=== PATIENT | male | born 1960 | race Caucasian/White ===

== ENCOUNTER 2019-07-03 08:30 | Emergency (ER) | payer SELFPAY ==
[~2019-07-03] VITALS: Ht 185 cm; Wt 109.0 kg
--- NOTE | 2019-07-03 09:30 | NUR ---
pt refused any testing beyond X-rays. physician states she wanted to order CT scans and blood work but pt refused. pt signed refusal form.
--- NOTE | 2019-07-03 09:36 | ED Fall/Injury ---
General Chief Complaint: Back Problems Stated Complaint: FALL - BACK PAIN Source: patient History of Present Illness Date Seen by Provider: Jul 03, 2019 Time Seen by Provider: 09:25 Initial Comments PT ARRIVES VIA POV STATES HE GOT UP FROM THE COUCH AND TRIPPED ON RUG AND FELL, HITTING HIS LEFT RIB AND FLANK AREA--DOES NOT STATE WHAT HE HIT THE AREA ON. OCCURRED AROUND MIDNIGHT C/O SEVERE PAIN WITH ANY MOVEMENT, COUGHING OR TAKING A DEEP BREATH--PAIN IS IN LEFT ANTERIOR/LATERAL AND POSTERIOR RIB AREA, LEFT FLANK, LEFT MID AND LOWER BACK AND LEFT MID AND UPPER ABDOMEN STATES HE TOOK 4 IBUPROFEN AT MIDNIGHT AND AN HOUR AGO. DOES NOT ACTUALLY FEEL SHORT OF BREATH STATES HE "HAS THE FLU" --STATES HE HAS BEEN SICK FOR A WEEK WITH COUGH AND CONGESTION, HAD FEVER OF 103 FOR THE FIRST FEW DAYS, BUT NOT NOW. HAS NOT SOUGHT CARE FOR THOSE SYMPTOMS. HAS NOT TAKEN ANYTHING FOR THOSE SYMPTOMS COUGH IS NON-PRODUCTIVE TALKS VERY RAPIDLY, RAMBLES ON ABOUT BEING A "FIGHTER", GETTING RAN OVER BY AN AIRPLANE, GETTING HIT BY A TRUCK, AND MULTITUDE OF OTHER "ACCIDENTS" STATES HE "NEEDS SOMETHING REALLY STRONG FOR PAIN" STATES HE "DOESN'T HAVE A DR" --BUT HAS RX FOR AMITRIPTYLINE--STATES HE SEES SOMEONE IN [facility] STATES [place] IN [place] Allergies and Home Medications Allergies Coded Allergies: No Known Drug Allergies (Unverified , 07/03/19) Home Medications Benzonatate 100 Mg Capsule, 1-2 TAB PO TID Prescribed by: CORINNE MEDINA on 07/03/19 1026 Doxycycline Monohydrate 100 Mg Capsule, 100 MG PO BID Prescribed by: CORINNE MEDINA on 07/03/19 1026 Methylprednisolone 4 Mg Tab.ds.pk, 4 MG PO UD Prescribed by: CORINNE MEDINA on 07/03/19 1026 Tramadol HCl 50 Mg Tablet, 50 MG PO Q4H PRN for PAIN-MODERATE Prescribed by: CORINNE MEDINA on 07/03/19 1026 Patient Home Medication List Home Medication List Reviewed: Yes Review of Systems Review of Systems Constitutional: see HPI Eyes: No Symptoms Reported Ears, Nose, Mouth, Throat: no symptoms reported Respiratory: see HPI Cardiovascular: see HPI Gastrointestinal: see HPI Genitourinary: no symptoms reported Musculoskeletal: see HPI Skin: no symptoms reported Psychiatric/Neurological: No Symptoms Reported Past [id number]-Mymhbu-Opdcmi Hx Patient Social History Alcohol Use: Denies Use Recreational Drug Use: No (DENIES) Smoking Status: Current Everyday Smoker (1 08/04 PPD) Type Used: Cigarettes Recent Foreign Travel: No Contact w/Someone Who Travel: No Recent Infectious Disease Expo: No Recent Hopitalizations: No Seasonal Allergies Seasonal Allergies: No Past Medical History Surgeries: Yes (BILATERAL HIP REPLACEMENTS) Joint Replacement, Orthopedic Respiratory: No Cardiac: No Neurological: No Genitourinary: No Gastrointestinal: No Musculoskeletal: Yes (BILATERAL HIP REPLACEMENTS) Endocrine: No HEENT: No Cancer: No Psychosocial: Yes Anxiety, Depression Integumentary: No Physical Exam Vital Signs Vital Signs - First Documented 07/03/19 09:22 Pulse 80 Resp 22 B/P (MAP) 146/91 (109) Pulse Ox 98 O2 Delivery Room Air Capillary Refill : Less Than 3 Seconds Height, Weight, BMI Height: '" Weight: lbs. oz. kg; 31.00 BMI Method: General Appearance: other (CONSTANT MOVEMENTS, SPEECH VERY RAPID AND TALKS GRANDIOSE, BELLIGERENT AND CURSING, UNCOOPERATIVE. OCCASIONAL HARSH, FORCED, DRY COUGH. REFUSES TO WEAR MASK; PACING, WANTING TO GO OUTSIDE TO SMOKE, ETC. ) Neck: normal inspection Cardiovascular: regular rate, rhythm, no murmur Respiratory: normal breath sounds, no respiratory distress, no accessory muscle use, other (EXAGGERATED PAIN RESPONSE--"JUMPS" BEFORE HE IS TOUCHED, AND WILL NOT ALLOW COMPLETE PALPATION OF THE AFFECTED AREA.) Gastrointestinal: normal bowel sounds, guarding, tenderness (LEFT MID, LEFT UPPER AND EPIGASTRIC ABDOMINAL TENDERNESS. 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, no motor/sensory deficits, alert, oriented x 3 Skin: normal color, warm/dry, other (ERYTHEMA TO LEFT POSTERIOR/LATERAL RIB AND LEFT FLANK/LOWER BACK AREA.) Claudia Coma Score Best Eye Response: (4) Open Spontaneously Best Verbal Response: (5) Oriented Best Motor Response: (6) Obeys Commands [facility] Total: 15 Progress/Results/Core Measures Results/Orders My Orders Orders - CORINNE MEDINA DO Chest Pa/Lat (2 View) (12/1/19 09:32) Ribs, Left 2-3 Views (07/03/19 09:32) Vital Signs/I&O 07/03/19 07/03/19 09:22 10:42 Pulse 80 80 Resp 22 22 B/P (MAP) 146/91 (109) 146/91 (109) Pulse Ox 98 98 O2 Delivery Room Air Blood Pressure Mean: 109 POS Progress Progress Note : Progress Note ADVISED OF NEED FOR LAB, UA AND CT, BASED ON HIS AREA OF PAIN AND SYMPTOMS--PT ADAMANTLY REFUSES ALL TESTS EXCEPT XRAYS, WITH REFUSAL OF TESTS FORM SIGNED PT REPEATEDLY WANTING PRESCRIPTION FOR "SOMETHING REALLY STRONG FOR PAIN" AT DISMISSAL, PT VERY INQUISITIVE ABOUT PAIN MEDICATION RX AND QUANTITY OF PILLS. ON ADVISING HIM OF RX FOR TORADOL AND QUANTITY OF 5 PILLS, PT THEN STATES THAT HE "STILL HAS DILAUDID AT HOME FROM HIS HIP SURGERY AND HE WILL JUST TAKE THEM INSTEAD" Diagnostic Imaging Comments CXR AND LEFT RIBS--NO RIB FX; RIGHT PERIHILAR DENSITIES--PER RADIOLOGIST REPORT AT 1021 Reviewed: Reviewed by Me Departure Impression Primary Impression: LEFT CHEST AND FLANK CONTUSION Additional Impressions: RIGHT PERIHILAR DENSITY Bronchitis Disposition: HOME, SELF-CARE Condition: Stable Departure-Patient Inst. Referrals: NO,LOCAL PHYSICIAN (PCP/Family) Primary Care Physician Patient Instructions: Acute Bronchitis, Adult (DC), CHEST CONTUSION Add. Discharge Instructions: FOLLOW UP WITH YOUR DR NEXT WEEK FOR FURTHER EVALUATION OF ABNORMAL CHEST XRAY LOTS OF FLUIDS OVER THE COUNTER MUCINEX DM FOR COUGH All discharge instructions reviewed with patient and/or family. Voiced understanding. Scripts Tramadol HCl (Ultram) 50 Mg Tablet 50 MG PO Q4H PRN for PAIN-MODERATE for 1 Day, #5 TAB Prov: CORINNE MEDINA DO 07/03/19 Methylprednisolone (Medrol) 4 Mg Tab.ds.pk 4 MG PO UD, #1 PKG Prov: CORINNE MEDINA DO 07/03/19 Benzonatate (TESSALON PERLES) 100 Mg Capsule 1-2 TAB PO TID for Cough, #30 CAP Prov: CORINNE MEDINA DO 07/03/19 Doxycycline Monohydrate (Doxycycline Monohydrate) 100 Mg Capsule 100 MG PO BID, #20 CAP Prov: CORINNE MEDINA K DO 07/03/19 CORINNE MEDINA DO Jul 03, 2019 09:36 POS
--- NOTE | 2019-07-03 10:12 | Diagnostic Imaging Report ---
Indication: Fall with left-sided chest pain. Comparison: None. Discussion: Three views of the left ribs were obtained. No displaced rib fracture or other osseous abnormality identified. The visualized heart and lungs are normal. No pneumothorax. Impression: 1. Negative left ribs. Dictated by: Dictated on workstation # [id number]
--- NOTE | 2019-07-03 10:14 | Diagnostic Imaging Report ---
INDICATION: Fall with chest pain. PA and lateral views of the chest are obtained. Heart size and pulmonary vascularity are within normal limits. There is no evidence of pneumothorax or pleural reaction. There is mild right perihilar densities which could be due to atelectasis. Contusion is not fully excluded. There is no evidence of significant pleural fluid. IMPRESSION: Mild right perihilar density which could be due to atelectasis, edema or contusion. If indicated, followup PA and lateral views of the chest would be useful to document resolution. Otherwise, no acute abnormalities identified. Dictated by: Dictated on workstation # [id number]
[2019-07-03] MEDS ORDERED: TRAM-42 PO (10:26)
[2019-07-03] MEDS ORDERED: DOXY100C42 PO (10:26)
[2019-07-03] MEDS ORDERED: BENZ100C18 PO (10:26)
[2019-07-03] MEDS ORDERED: METH4TAB PO (10:26)
--- NOTE | 2019-07-03 10:35 | NUR ---
pt refused d/c vital signs.
[2019-07-03 10:42] VITALS: BP 146/91
--- OUTSIDE RECORDS SUMMARY | 2019-07-28 06:28 | XMS REPORT | Continuity of Care Document ---
Author Organization Unknown Address Unknown Phone Unavailable Allergies Active Description Code Type Severity Reaction Onset Reported/Identified Relationship to Patient Clinical Status Yes No Known Drug Allergies [id number] Drug Allergy Unknown N/A 07/03/2019 Medications There is no data. Problems Date Dx Coded Attending Type Code Diagnosis Diagnosed By 07/08/2019 CORINNE MEDINA DO, Ot F17.210 NICOTINE DEPENDENCE, CIGARETTES, UNCOMPL 07/08/2019 CORINNE MEDINA DO Ot F32.9 MAJOR DEPRESSIVE DISORDER, SINGLE EPISOD 07/08/2019 CORINNE MEDINA DO Ot F41.9 ANXIETY DISORDER, UNSPECIFIED 07/08/2019 CORINNE MEDINA DO Ot J40 BRONCHITIS, NOT SPECIFIED ACUTE OR CH 07/08/2019 CORINNE MEDINA DO Ot M54.9 DORSALGIA, UNSPECIFIED 07/08/2019 CORINNE MEDINA DO Ot R40.214 2 COMA SCALE, EYES OPEN, SPONTANEOUS, EMR 07/08/2019 CORINNE MEDINA DO Ot R40.225 2 COMA SCALE, BEST VERBAL RESPONSE, ORIENT 07/08/2019 CORINNE MEDINA DO Ot R40.236 2 COMA SCALE, BEST MOTOR RESPONSE, OBEYS C 07/08/2019 CORINNE MEDINA DO Ot R91.8 OTHER NONSPECIFIC ABNORMAL FINDING OF DIMA 07/08/2019 CORINNE MEDINA DO Ot S20.212 A CONTUSION OF LEFT FRONT WALL OF THORAX, 07/08/2019 CORINNE MEDINA DO Ot S30.1XX A CONTUSION OF ABDOMINAL WALL, INITIAL ENC 07/08/2019 CORINNE MEDINA DO Ot W01.10X A FALL SAME LEV FROM SLIP/TRIP W STRIKE AG 07/08/2019 CORINNE MEDINA DO Ot Z96.643 PRESENCE OF ARTIFICIAL HIP JOINT, BILATE Procedures There is no data. Results There is no data. Encounters ACCT No. Visit Date/Time Discharge Status Pt. Type Provider Facility Loc./Unit Complaint [id number] 07/03/2019 08:34:00 019 10:35:00 DIS Outpatient CORINNE MEDINA DO, V [facility] ER FALL - BACK PAIN
== END 2019-07-03 10:35 | disposition home or self-care (01) ==
LOC: ER 08:34
DX: S20.212A Contusion of left front wall of thorax, initial encounter (principal); S30.1XXA Contusion of abdominal wall, initial encounter; R91.8 Other nonspecific abnormal finding of lung field; J40 Bronchitis, not specified as acute or chronic; F41.9 Anxiety disorder, unspecified; F32.9 Major depressive disorder, single episode, unspecified; F17.210 Nicotine dependence, cigarettes, uncomplicated; R40.2142 Coma scale, eyes open, spontaneous, at arrival to emergency department; R40.2252 Coma scale, best verbal response, oriented, at arrival to emergency department; R40.2362 Coma scale, best motor response, obeys commands, at arrival to emergency department; Z96.643 Presence of artificial hip joint, bilateral; W01.10XA Fall on same level from slipping, tripping and stumbling with subsequent striking against unspecified object, initial encounter
CPT/HCPCS: 71046; 71100; 99281

== ENCOUNTER 2020-01-08 22:52 | Emergency (ER) | payer SELFPAY ==
[~2020-01-08] VITALS: Ht 185 cm; Wt 100.0 kg
[~2020-01-08 22:52] MED LIST: BENZ100C18 PO; DOXY100C42 PO; METH4TAB PO; TRAM-42 PO
--- OUTSIDE RECORDS SUMMARY | 2020-01-08 22:56 | XMS REPORT | Continuity of Care Document ---
Author Organization Unknown Address Unknown Phone Unavailable Allergies Active Description Code Type Severity Reaction Onset Reported/Identified Relationship to Patient Clinical Status Yes No Known Drug Allergies [id number] Drug Allergy Unknown N/A 07/03/2019 Medications There [...] Status Pt. Type Provider Facility Loc./Unit Complaint [id number] 07/03/2019 08:34:00 019 10:35:00 DIS Outpatient CORINNE MEDINA DO, V [facility] ER FALL - BACK PAIN
[2020-01-08] MEDS ORDERED: ASPIRIN 81 MG CHEW (CHILDREN'S ASA) PO STA (23:08)
[2020-01-08 23:15] LABS: BASOPHILS % (AUTO) 0 % (0-10); EOSINOPHILS # (AUTO) 0.3 10^3/uL (0.0-0.3); EOSINOPHILS % (AUTO) 2 % (0-10); HEMATOCRIT 50 % (40-54); HEMOGLOBIN 17.3 G/DL (13.3-17.7); LYMPHOCYTES # (AUTO) 1.6 X 10^3 (1.0-4.0); LYMPHOCYTES % (AUTO) 13 % (12-44); MEAN CORPUSCULAR HEMOGLOBIN 33 PG (25-34); MEAN CORPUSCULAR HGB CONC 34 G/DL (32-36); MEAN CORPUSCULAR VOLUME 95 FL (80-99); MEAN PLATELET VOLUME 9.5 FL (7.4-10.4); MONOCYTES # (AUTO) 1.2 X 10^3 (0.0-1.0); MONOCYTES % (AUTO) 9 % (0-12); NEUTROPHILS # (AUTO) 9.2 X 10^3 (1.8-7.8); NEUTROPHILS % (AUTO) 75 % (42-75); PLATELET COUNT 226 10^3/uL (130-400); RED CELL DISTRIBUTION WIDTH 13.4 % (10.0-14.5); WHITE BLOOD COUNT 12.2 10^3/uL (4.3-11.0)
[2020-01-08] MEDS ORDERED: LORazepam INJ 2 MG/ML (ATIVAN) VIAL IVP ONE ×2 (23:15→23:45)
[2020-01-08 23:17] LABS: ALBUMIN 4.3 GM/DL (3.2-4.5); CHLORIDE 99 MMOL/L (98-107); POTASSIUM 4.1 MMOL/L (3.6-5.0); SODIUM 135 MMOL/L (135-145)
--- NOTE | 2020-01-08 23:17 | ED Neurological Problem ---
General Chief Complaint: Back Problems Stated Complaint: L SIDED NUMBNESS, JAW PAIN Source: patient Exam Limitations: no limitations History of Present Illness Date Seen by Provider: Jan 08, 2020 Time Seen by Provider: 23:00 Initial Comments Patient has ER by private conveyance with chief complaint that he woke up around 1800 this evening with left facial droop, his left arm would not move and says that his left leg is normal but has weakness when walking and dragging his foot. He says he has to hip replacements and that is why his left leg drops because it's short of than the other leg. No history of stroke or heart attack. He was set up for a stress test by his primary care doctor at [facility] that they had to cancel it because he took his blood pressure medicine that morning. He is not having any chest pain or history of A. fib palpitations or irregular heart rate. He says he had a bad episode of PTSD a day ago while out with his girlfriend smoking some cannabis. She talked him down and brought him home and put him to bed. He woke up this evening and that's when he noticed the neurologic changes. He says he has not had a attack of PTSD for years. He does have general anxiety. He has high blood pressure and his been battling blood pressure is gone up over 200 systolic for the past several weeks with his primary care doctor. He takes benazepril and metoprolol but is unsure of the doses. He has Xanax of an uncertain dose that he only occasionally uses for anxiety. He has not used it recently. He is not on a blood thinner or aspirin. Allergies and Home Medications Allergies Coded Allergies: ketorolac (Unverified Adverse Reaction, Unknown, 01/08/20) Home Medications Benzonatate 100 Mg Capsule, 1-2 TAB PO TID Prescribed by: CORINNE MEDINA on 07/03/19 1026 Doxycycline Monohydrate 100 Mg Capsule, 100 MG PO BID Prescribed by: CORINNE MEDINA on 07/03/19 1026 Methylprednisolone 4 Mg Tab.ds.pk, 4 MG PO UD Prescribed by: CORINNE MEDINA on 07/03/19 1026 Tramadol HCl 50 Mg Tablet, 50 MG PO Q4H PRN for PAIN-MODERATE Prescribed by: CORINNE MEDINA on 07/03/19 1026 Patient Home Medication List Home Medication List Reviewed: Yes Review of Systems Review of Systems Constitutional: No chills, No diaphoresis Eyes: Denies Blindness, Denies Blurred Vision Ears, Nose, Mouth, Throat: denies ear pain, denies mouth pain Respiratory: No dyspnea on exertion, No hemoptysis Cardiovascular: No chest pain, No palpitations Gastrointestinal: No abdominal pain, No constipation, No nausea, No vomiting Genitourinary: No discharge, No dysuria Musculoskeletal: No back pain, No joint pain Skin: No pruritus, No rash Psychiatric/Neurological: Emotional Problems; Denies Cognitive Dysfunction, Denies Headache; Numbness, Unable to Move Upper Ext All Other Systems Reviewed Negative Unless Noted: Yes Past Nqixqco-Sopezj-Prwomr Hx Patient Social History Alcohol Use: Occasionally Uses Recreational Drug Use: No Smoking Status: Current Everyday Smoker Type Used: Cigarettes 2nd Hand Smoke Exposure: Yes Recent Foreign Travel: No Contact w/Someone Who Travel: No Recent Hopitalizations: No Physical Abuse: No Sexual Abuse: No Mistreated: No Seasonal Allergies Seasonal Allergies: No Past Medical History Surgeries: Yes (BILATERAL HIP REPLACEMENTS) Joint Replacement, Orthopedic Respiratory: No Cardiac: No Neurological: No Genitourinary: No Gastrointestinal: No Musculoskeletal: Yes (BILATERAL HIP REPLACEMENTS) Endocrine: No HEENT: No Cancer: No Psychosocial: Yes Anxiety, Depression Integumentary: No Physical Exam Vital Signs Vital Signs - First Documented 01/08/20 23:07 Temp 37.1 Pulse 85 Resp 16 B/P (MAP) 91/60 (70) Pulse Ox 94 O2 Delivery Room Air Capillary Refill : Height, Weight, BMI Height: '" Weight: lbs. oz. kg; 31.00 BMI Method: General Appearance: WD/WN, moderate distress HEENT: PERRL/EOMI, TMs normal, other (left facial droop at the mouth only) Neck: non-tender, full range of motion, supple, normal inspection Respiratory: chest non-tender, lungs clear, normal breath sounds, no respiratory distress, no accessory muscle use Cardiovascular: normal peripheral pulses, regular rate, rhythm, no edema Peripheral Pulses: 2+ Dorsalis Pedis (R), 2+ Left Dors-Pedis (L), 2+ Radial Pulses (R), 2+ Radial Pulses (L) Gastrointestinal: normal bowel sounds, non tender, soft Extremities: normal range of motion, non-tender, normal inspection, normal capillary refill Neurologic/Psychiatric: alert, oriented x 3, motor weakness (left arm 1 out of 5 strength, unable to lift off the bed but has ability to move it), other (anxious affect) Crainal Nerves: normal hearing, normal speech, PERRL Coordination/Gait: No normal finger to nose (right arm is normal) Motor/Sensory: sensory deficit (decreased sensation left upper extremity), weak motor strength LUE Skin: normal color, warm/dry Stroke Onset of Symptoms Date of Onset of Symptoms: Jan 08, 2020 Time of Symptom Onset: 18:00 Symptoms onset unknown: Yes NIH Stroke Scale Assessment Select: Initial Level of Consciousness: 0=Alert (0), Level of Consciousness- Questions: 0=Answers both month/age (0), LOC Commands: 0=Performs both tasks (0), Gaze: Normal (0), Visual Hernandez: 0=No visual loss (0), Facial Movement (Facial Paresis): 1=Minor paralysis (1), Motor Function-Arms Right: 0=No drift (0), Motor Function-Arms Left: 3=No effort/gravity (3), Motor Function- Legs Right: 0=No drift (0), Motor Function-Legs Left: 0=No drift (0), Limb Ataxia: 0=Absent (0), Sensory: 1=Mild to Moderate loss (1), Best Language: 0=No aphasia (0), Dysarthria: 0=Normal (0), Extinction & Inattention: 0=No abnormality (0), Total: 5 Stroke Thrombolytic Exclusion Age 18 or Over: Yes History of CVA: No Uncontrolled Coagulation Defec: No Intracranial Hemorrhage: No Severe Hypertension: No GI or Bleed: No Subarachnoid Hemorrhage: No Intracranial Neoplasm/Aneurysm: No Oral Anticoagulants: No Surgery or Trauma: No Puncture of Non-Compressible V: No Recent CPR: No Diabetic Hemorrhagic Retinopat: No Organ Biopsy: No Recent Obstetric Delivery: No Glucose: No (170) Significant Hepatic Dysfunctio: No NIH Stoke Scale >22: No Bacterial Endocarditis: No Pericarditis: No Improving Symptoms: No Platelets: No TPA Contraindication: Yes (unknown last known well time. Well outside the window.) IV - TPa Received IV - TPa Procedure Performed?: No (outside the window) Progress/Results/Core Measures Results/Orders Lab Results Laboratory Tests Test 01/08/20 23:03 01/08/20 23:07 Range/Units White Blood Count 12.2 H 4.3-11.0 10^3/uL Red Blood Count 5.27 4.35-5.85 10^6/uL Hemoglobin 17.3 13.3-17.7 G/DL Hematocrit 50 40-54 % Mean Corpuscular Volume 95 80-99 FL Mean Corpuscular Hemoglobin 33 25-34 PG Mean Corpuscular Hemoglobin Concent 34 32-36 G/DL Red Cell Distribution Width 13.4 10.0-14.5 % Platelet Count 226 130-400 10^3/uL Mean Platelet Volume 9.5 7.4-10.4 FL Neutrophils (%) (Auto) 75 42-75 % Lymphocytes (%) (Auto) 13 12-44 % Monocytes (%) (Auto) 9 0-12 % Eosinophils (%) (Auto) 2 0-10 % Basophils (%) (Auto) 0 0-10 % Neutrophils # (Auto) 9.2 H 1.8-7.8 X 10^3 Lymphocytes # (Auto) 1.6 1.0-4.0 X 10^3 Monocytes # (Auto) 1.2 H 0.0-1.0 X 10^3 Eosinophils # (Auto) 0.3 0.0-0.3 10^3/uL Basophils # (Auto) 0.0 0.0-0.1 10^3/uL Prothrombin Time 13.9 12.2-14.7 SEC INR Comment 1.0 0.8-1.4 Activated Partial Thromboplast Time 28 24-35 SEC D-Dimer 0.98 H 0.00-0.49 UG/ML Sodium Level 135 135-145 MMOL/L Potassium Level 4.1 3.6-5.0 MMOL/L Chloride Level 99 98-107 MMOL/L Carbon Dioxide Level 24 21-32 MMOL/L Anion Gap 12 5-14 MMOL/L Blood Urea Nitrogen 42 H 7-18 MG/DL Creatinine 1.85 H 0.60-1.30 MG/DL Estimat Glomerular Filtration Rate 38 BUN/Creatinine Ratio 23 Glucose Level 175 H 70-105 MG/DL Calcium Level 9.4 8.5-10.1 MG/DL Corrected Calcium 9.2 8.5-10.1 MG/DL Total Bilirubin 0.8 0.1-1.0 MG/DL Aspartate Amino Transf (AST/SGOT) 23 5-34 U/L Alanine Aminotransferase (ALT/SGPT) 26 0-55 U/L Alkaline Phosphatase 77 40-136 U/L Troponin I < 0.028 <0.028 NG/ML Total Protein 7.4 6.4-8.2 GM/DL Albumin 4.3 3.2-4.5 GM/DL Glucometer 170 H 70-110 MG/DL My Orders Orders - GORDY VILLATORO Lorazepam Injection (Ativan Injection) (01/08/20 23:15) Cbc With Automated Diff (01/08/20 23:08) Protime With Inr (01/08/20:08) Partial Thromboplastin Time (01/08/20:08) Comprehensive Metabolic Panel (01/08/20 23:08) Fibrin Degradation Products (01/08/20 23:08) Troponin I (01/08/20 23:08) Ua Culture If Indicated (01/08/20 23:08) Chest 1 View, Ap/Pa Only (01/08/20 23:08) Ekg Tracing (01/08/20 23:08) Nothing By Mouth (01/09/20 Breakfast) Accucheck Stat ONCE (01/08/20 23:08) Ed Iv/Invasive Line Start (01/08/20 23:08) Ed Iv/Invasive Line Start (01/08/20 23:08) Vital Signs Stroke Patient Q15M (01/08/20 23:08) Ct Head Wo-R/O Stroke (01/08/20 23:08) O2 (01/08/20 23:08) Intake & Output 06,14,22 (01/08/20 23:08) Aspirin Chewable Tablet (Baby Aspirin Ch (01/08/20 23:08) Monitor-Rhythm Ecg Trace Only (01/08/20 23:08) Dysphagia Screening Tool (01/08/20 23:08) Lipid Panel (01/09/20 06:00) Lorazepam Injection (Ativan Injection) (01/08/20 23:45) Ed Iv/Invasive Line Start (01/08/20 23:42) Ns Iv 1000 Ml (Sodium Chloride 0.9%) (01/08/20 23:42) Nicotine Patch (Nicoderm Patch) (01/08/20 23:55) Nicotine Patch (Nicoderm Patch) (01/09/20 00:00) Ct Angio Head/Neck (01/09/20 00:01) Iohexol Injection (Omnipaque 350 Mg/Ml 1 (01/09/20 00:30) Received Contrast (Hold Metformin- Contr (01/09/20 00:30) Ns (Ivpb) (Sodium Chloride 0.9% Ivpb Bag (01/09/20 00:30) Ed Iv/Invasive Line Start (01/09/20 00:40) Ns Iv 1000 Ml (Sodium Chloride 0.9%) (01/09/20 00:40) Medications Given in ED Current Medications Medications Dose Ordered Sig/Kim Route Start Time Stop Time Status Last Admin Dose Admin Iohexol 100 ml ONCE ONCE IV 01/09/20 00:30 01/09/20 00:32 DC 01/09/20 00:40 75 ML Lorazepam 0.5 mg ONCE ONCE IVP 01/08/20 23:15 01/08/20 23:16 DC 01/09/20 00:00 0.5 MG Lorazepam 0.5 mg ONCE ONCE IVP 01/08/20 23:45 01/08/20 23:46 DC 01/08/20 23:45 0.5 MG Nicotine 21 mg ONCE ONCE TD 01/09/20 00:00 01/09/20 00:01 DC 01/09/20 00:21 21 MG Sodium Chloride 100 ml ONCE ONCE IV 01/09/20 00:30 01/09/20 00:32 DC 01/09/20 00:40 80 ML Vital Signs/I&O 01/08/20 01/08/20 01/09/20 23:07 23:30 00:31 Temp 37.1 Pulse 85 76 Resp 16 16 B/P (MAP) 91/60 (70) 92/64 Pulse Ox 94 97 94 O2 Delivery Room Air Room Air Progress Progress Note #1: Time: 23:24 Progress Note Patient has anxiety about health and history of PTSD. He has to go out and smoke cigarettes. We explained and the nicotine is inadvisable but we would provide him with some Ativan. We'll start with half a milligram IV which seems to be working for now. Plan to get a CT scan of his head to rule out intracranial hemorrhage. If this is ruled out then we can get a CT angiogram as he may still have an actionable thrombus. We'll make contact with stroke neurology on- call. Progress Note #2: Time: 23:45 Progress Note Patient is still having some anxiety related to being stuck in the room and white gone smoke cigarettes. Again we've offered another dose of Ativan. He has accepted this for now. We did have a supported decision-making process between Dr. james, Dr. Perry the patient and this provider about using contrast given his baseline chronic kidney disease. Patient has accepted the risks at this time. We've also to mitigate the risks are going to give him some IV fluids watch him overnight in the hospital. The potential benefit of finding an actionable lesion seems to outweigh the potential risk. Patient says he really wants a cigarette and is having a lot of anxiety about the situation. Multiple times she said he wants to get up and walk out and smoke a cigarette. Even though nicotine was explained to be a poor choice for his presentation. It would keep him here and keep him from going AMA we're going to provide him a nicotine patch. Progress Note #3: Time: 00:01 Progress Note After the second dose of Ativan the patient's blood pressure is rather soft in the 90s systolic so we're going to give him a liter of fluids now. Initial ECG Impression Date: Jan 08, 2020 Initial ECG Impression Time: 22:56 Initial ECG Rate: 91 Initial ECG Rhythm: Normal Sinus Initial ECG Intervals: Normal Initial ECG Impression: Normal, Nonspecific Changes Initial ECG Comparisson: No Previous ECG Available Comment Normal sinus rhythm without clinically relevant ST elevation or depression. Diagnostic Imaging Diagonstic Imaging: Xray Plain Films/CT/US/NM/MRI: chest (1v) Comments No acute cardiopulmonary process noted on one view chest x-ray. Mild left him a diaphragm elevation. Reviewed: Reviewed by Me Diagonstic Imaging: CT (without IV contrast) Plain Films/CT/US/NM/MRI: head Comments Right mucosal thickening of the maxilla. No evidence of acute infarct or intracranial hemorrhage. The right supraclinoid ICA is heavily calcified. Reviewed: Reviewed Night Dhaval Study, Reviewed by Me Diagonstic Imaging: CT (angiogram) Plain Films/CT/US/NM/MRI: head (head and neck) Comments Occlusion the right supraclinoid ICA M1 division and right M1 segment MCA. Collaterals reconstitute the middle cerebral artery branches in the sylvian fissure and a vertical vascular enhancement over the convexities is normal. No hemodynamically significant carotid stenosis. Reviewed: Reviewed Night Hawk Study, Reviewed by Me, Discussed w/Radiologist (Dr Christianson) Consults : Consults Notes [id number]: Discussed the imaging and presentation with Dr. Perry, stroke neurol ogist carbonation equipment tender at [facility] and she recommends we pursue CT angiogram of the head and neck. We discussed the risks and benefits as well as discussed with the patient and using a supported decision making process this provider, the neurologist and the patient agreed to pursue imaging tonight. 0045 discussed the case with Dr. Perry and she will talk to interventional is but she believes it is reasonable to go ahead and send the patient to them. [facility] gave us a room number. [facility] will call us back to obtain report from the nurse. Departure Impression Primary Impression: CVA (cerebral vascular accident) Qualified Codes: I63.9 - Cerebral infarction, unspecified Disposition: 02 XFER SHT-TRM HOSP Condition: Stable Transfer Transfer Reason: Exceeds level of care (needs interventional clot.) Time Spoke to Accepting Phy: 00:[address] Donahue, neurology accepts the patient to the ER for perfusion scan. Transfer Facility: [facility] Method of Transfer: EMS Departure-Patient Inst. Referrals: NO,LOCAL PHYSICIAN (PCP/Family) Primary Care Physician GORDY VILLATORO Jan 08, 2020 23:17
[2020-01-08 23:18] LABS: CALCIUM 9.4 MG/DL (8.5-10.1)
[2020-01-08 23:19] LABS: GLUCOSE 175 MG/DL (70-105)
[2020-01-08 23:20] LABS: TOTAL PROTEIN 7.4 GM/DL (6.4-8.2)
[2020-01-08 23:21] LABS: BILIRUBIN,TOTAL 0.8 MG/DL (0.1-1.0); CARBON DIOXIDE 24 MMOL/L (21-32); PROTHROMBIN TIME PATIENT 13.9 SEC (12.2-14.7)
[2020-01-08 23:23] LABS: ALKALINE PHOSPHATASE 77 U/L (40-136); CREATININE SERUM 1.85 MG/DL (0.60-1.30); FIBRIN DEGRADATION PRODUCTS 0.98 UG/ML (0.00-0.49); GFR ESTIMATED 38
[2020-01-08 23:24] LABS: BUN/CREATININE RATIO 23
[2020-01-08 23:26] LABS: ALANINE AMINOTRANSFERASE 26 U/L (0-55)
[2020-01-08] MEDS ORDERED: NS IV 1000 ML 1,000 ML IV SCH (23:42)
[2020-01-08] MEDS ORDERED: NICOTINE 21 MG (NICODERM) PATCH ONE (23:55)
[2020-01-09] MEDS ORDERED: NICOTINE 21 MG (NICODERM) PATCH TD ONE
[2020-01-09] MEDS ORDERED: HOLD METFORMIN - RECEIVED CONTRAST 20 ML VIAL IV SCH (00:30)
[2020-01-09] MEDS ORDERED: NS 100 ML (IVPB) BAG IV ONE (00:30)
[2020-01-09] MEDS ORDERED: IOHEXOL 350 MG/ML 100 ML (OMNIPAQUE 350) VIAL IV ONE (00:30)
[2020-01-09 00:31] VITALS: BP 92/64
[2020-01-09] MEDS ORDERED: NS IV 1000 ML 1,000 ML IV SCH (00:40)
[2020-01-09 01:32] VITALS: BP 92/60
--- NOTE | 2020-01-09 07:10 | Diagnostic Imaging Report ---
PROCEDURE: CT head wo r/o stroke. TECHNIQUE: Multiple contiguous axial images were obtained through the brain without the use of intravenous contrast. Auto Exposure Controls were utilized during the CT exam to meet ALARA standards for radiation dose reduction. INDICATION: Facial droop and numbness. FINDINGS: The ventricles and sulci are within normal limits. No hydrocephalus. No midline shift. No mass, hemorrhage or extra-axial fluid collection. There is marked atherosclerotic calcification of the right supraclinoid internal carotid artery. There is mucosal thickening in the right maxillary sinus. Remaining sinuses and mastoid air cells are clear. IMPRESSION: No acute intracranial abnormality. Marked atherosclerotic calcification of the right supraclinoid internal carotid artery. Recommend clinical correlation if warranted, followup with CTA. Right maxillary sinus disease. Dictated by: Dictated on workstation # [id number]
--- NOTE | 2020-01-09 07:20 | Diagnostic Imaging Report ---
INDICATION: Facial droop. Comparison made with prior examination 07/03/2019 FINDINGS: There is cardiomegaly. There are patchy bibasilar infiltrates. There is no pleural effusion or pneumothorax. Mediastinum is unremarkable. IMPRESSION: Cardiomegaly and patchy bibasilar pulmonary infiltrates. Dictated by: Dictated on workstation # [id number]
--- NOTE | 2020-01-09 08:12 | Diagnostic Imaging Report ---
PROCEDURE: CT angiography of the head and CT angiography of the neck with and without contrast. TECHNIQUE: Contiguous noncontrast images were obtained from the skull base through the vertex. After intravenous contrast administration, helical CT angiography of the neck was performed. Source data was reformatted into 3D MIP projections. Delayed post contrast acquisition was also obtained. Auto Exposure Controls were utilized during the CT exam to meet ALARA standards for radiation dose reduction. INDICATION: Right facial droop and left-sided numbness. FINDINGS: CTA of the neck demonstrates normal takeoff of the great vessels from the arch. The vertebral arteries appear normal with a dominant left vertebral artery. Both carotid arteries are normal. Minimal emphysematous changes are present. Degenerative changes are present in the spine. No fractures are present. The soft tissues of the neck appear unremarkable. CT of the head demonstrates thrombus extending through the M1 segment of the right middle cerebral artery. The supraclinoid portion of the internal carotid artery also has thrombus in it. There are small collateral vessels going around the M1 segment thrombus. Anterior cerebral arteries appear normal. The left middle and anterior cerebral arteries are normal. Right vertebral artery is small, feeding the right PICA. A small right vertebral artery does join the left vertebral artery. The basilar artery and posterior cerebral arteries appear normal. IMPRESSION: There is thrombus in the supraclinoid portion of the right internal carotid artery and in the right M1 segment. There is moderate collateral flow. The brain parenchyma at this time appears normal. Findings agree with [facility] report. Dictated by: Dictated on workstation # [id number]
== END 2020-01-09 02:04 | disposition short-term general hospital (02) ==
LOC: EDUNIT# 22:52 → ER 22:54
DX: I63.9 Cerebral infarction, unspecified (principal); F43.10 Post-traumatic stress disorder, unspecified; F41.9 Anxiety disorder, unspecified; F32.9 Major depressive disorder, single episode, unspecified; F17.210 Nicotine dependence, cigarettes, uncomplicated; Z88.6 Allergy status to analgesic agent; Z96.643 Presence of artificial hip joint, bilateral
CPT/HCPCS: 36415; 70450; 70496; 70498; 71045; 80053; 82962; 84484; 85025; 85379; 85610; 85730; 93005; 93041